=== PATIENT | female | born 1930 | race Caucasian/White ===

== ENCOUNTER → 2016-10-02 | Outpatient (CLI) | payer OTHER ==
[~2016-10-02] MED LIST: ACETAMINOPHEN650 M6 PO; ACITRETIN10 MG PO; ACTONEL150 MG PO; ANXIETY MED PO; ARTIFICIAL TEAR15 M1 BOTH EYES; ASPIR-TRIN325 M1 PO; BENADRYL25 MG PO; CALCIUM + VITA1 EACH PO; CEPHALEXIN500 MG PO; CIPRO500 MG PO; CLEOCIN300 MG PO; DOCUSATE SODIU100 MG PO; DOXYCYCLINE HY100 MG PO; FISH OIL SOFTG1 EACH PO; FLAGYL500 MG PO; HEPARIN SO5000 UNITS SC; KENALOG,ARISTOC80 GM TP; LISINOPRIL10 MG PO; LISINOPRIL5 MG PO; OXYCODONE HCL5 MG PO; POLYETHYLENE GL17 GM PO; PREDNISONE20 MG PO; REFRESH TEARS15 ML BOTH EYES; REMICADE10 MG/ML IV; THERAGRAN1 TABLET PO; TRAMADOL HCL50 MG PO; TYLENOL EXTRA500 MG PO; TYLENOL REGULA325 MG PO; ULTRAVATE 0.05%15 GM TP; VIBRAMYCIN100 MG PO; VITAMIN D31000 UNI1 PO; WELLBUTRIN75 MG PO; ZESTRIL10 MG PO; Zantac PO; [UNRECOGNIZED DRUG - REMARK]
== END | disposition home or self-care (01) ==
LOC: RES 08:34
DX: J90 Pleural effusion, not elsewhere classified (principal); R91.8 Other nonspecific abnormal finding of lung field; R06.02 Shortness of breath
CPT/HCPCS: 71020; 94060; 94726; 94729

== ENCOUNTER 2016-10-21 14:54 | Inpatient (IN) | payer OTHER ==
[~2016-10-21] VITALS: Ht 147.3 cm; Wt 43.2 kg
[2016-10-21 15:51] LABS: EOSINOPHIL (%) 0.4 % (0-5); HEMATOCRIT 45.1 % (36.0-46.0); IMMATURE GRANULOCYTE (%) 0.4 % (0.0-0.7); INSTRUMENT ABS NEUTROPHIL CT 3.1 K/uL; LYMPHOCYTE COUNT 1.9 K/uL (1.0-2.8); MCH 32.7 PG (29.0-34.0); MCHC 32.2 G/DL (30.0-36.0); MCV 101.8 FL (83-99); MEAN PLAT.VOLUME 11.3 uM^3 (9.5-12.4); MONOCYTE (%) 8.3 % (3-12); MONOCYTE COUNT 0.5 K/uL (0-0.8); NEUTROPHIL (%) 55.8 % (45-76); NEUTROPHIL COUNT 3.1 K/uL (1.8-6.4); PLATELET COUNT 153 K/uL (156-360); RBC DIS.WIDTH-CV 15.9 % (11.8-14.6); RBC DIS.WIDTH-SD 59.8 % (39-53); RED BLOOD COUNT 4.43 M/uL (3.80-5.20); WHITE BLOOD COUNT 5.6 K/uL (4.1-10.2)
[2016-10-21 16:02] LABS: CHLORIDE 104 mEq/L (99-109); POTASSIUM 3.9 mEq/L (3.7-5.4); SODIUM 140 mEq/L (136-147)
[2016-10-21 16:04] LABS: GLUCOSE 124 mg/dL (70-99)
[2016-10-21 16:05] LABS: ANION GAP 15 MEQ/L (2-14)
[2016-10-21 16:06] LABS: TOTAL BILIRUBIN 0.8 mg/dL (0.0-1.0)
[2016-10-21 16:07] LABS: ALKALINE PHOSPHATASE 99 IU/L (3-129)
[2016-10-21 16:08] LABS: GFR ESTIMATE (CALCULATED) 56 mL/min/
[2016-10-21 16:09] LABS: UREA NITROGEN (BUN) 28 mg/dL (9-23)
[2016-10-21 16:14] LABS: TROP-I INTERPRETATION NEGATIVE; TROPONIN-I 0.09 ng/mL (0.0-0.30)
[2016-10-21 18:09] LABS: ADD MIUA? YES; BILIRUBIN NEGATIVE; BLOOD NEGATIVE; COLOR AMBER ((YELLOW)); GLUCOSE (STRIP) NEGATIVE; KETONES 5; LEUKOCYTES NEGATIVE; NITRITE NEGATIVE; PROTEIN (STRIP) 100
[2016-10-21 18:19] LABS: BACTERIA RARE /HPF; EPITHELIAL CELLS RARE /HPF; MUCUS TRACE /LPF; UCUL ADDED? YES
[2016-10-21 18:41] LABS: SPECIFIC GRAVITY 1.054 (1.000-1.030)
[2016-10-22 01:10] LABS: TROP-I INTERPRETATION NEGATIVE; TROPONIN-I 0.13 ng/mL (0.0-0.30)
[2016-10-22 03:45] VITALS: BP 141/78
[2016-10-22 04:59] LABS: METH RESISTANT S AUREUS PCR NEGATIVE (NEGATIVE)
[2016-10-22 05:03] LABS: PROBE CHECK PASS; SPECIMEN PROCESSING CONTROL PASS
[2016-10-22 05:05] LABS: TROP-I INTERPRETATION NEGATIVE; TROPONIN-I 0.14 ng/mL (0.0-0.30)
[2016-10-22 07:00] VITALS: BP 125/67
[2016-10-22 11:24] LABS: TYPE OF FLUID PLEURAL
[2016-10-22 11:28] VITALS: BP 128/71
[2016-10-22 11:36] LABS: BODY FLUID RBC'S 1000 /MM^3 (0-100); BODY FLUID WBC'S 220 /MM^3 (0-500)
[2016-10-22 12:13] LABS: BODY FLUID EOSINOPHILS 0 % (0-25); MONONUCLEAR WBC'S 99 %; POLYNUCLEAR WBC'S 1 % (0-25)
[2016-10-22 12:36] LABS: BODY FLUID LDH 64 IU/L; BODY FLUID PROTEIN < 3.0 G/DL
[2016-10-22 15:54] VITALS: BP 111/68
[2016-10-22 19:30] VITALS: BP 103/63
[2016-10-23] VITALS: BP 99/60
[2016-10-23 03:51] VITALS: BP 128/78
[2016-10-23 05:41] LABS: HEMATOCRIT 42.6 % (36.0-46.0); MCH 33.1 PG (29.0-34.0); MCHC 32.6 G/DL (30.0-36.0); MCV 101.4 FL (83-99); MEAN PLAT.VOLUME 11.4 uM^3 (9.5-12.4); PLATELET COUNT 145 K/uL (156-360); RBC DIS.WIDTH-CV 15.9 % (11.8-14.6); RBC DIS.WIDTH-SD 59.1 % (39-53); WHITE BLOOD COUNT 5.1 K/uL (4.1-10.2)
[2016-10-23 06:15] LABS: ANION GAP 11 MEQ/L (2-14); CHLORIDE 103 MEQ/L (99-109); GFR ESTIMATE (CALCULATED) 56 mL/min/; GLUCOSE 101 mg/dL (70-99); POTASSIUM 3.2 MEQ/L (3.7-5.4); SAMPLE HEMOLYSIS CHECK 0; SAMPLE ICTERIC CHECK 0; SAMPLE LIPEMIA CHECK 0; SODIUM 140 MEQ/L (136-147); UREA NITROGEN (BUN) 25 mg/dL (9-23)
[2016-10-23 07:23] VITALS: BP 105/59
[2016-10-23 08:54] LABS: LACTATE DEHYDROGENASE 246 IU/L (20-246)
[2016-10-23 12:13] VITALS: BP 107/57
[2016-10-23 15:18] VITALS: BP 106/67
[2016-10-23 20:06] VITALS: BP 105/62
[2016-10-24 00:23] VITALS: BP 116/60
[2016-10-24 03:47] VITALS: BP 91/54
[2016-10-24 09:45] VITALS: BP 111/60
[2016-10-24 11:33] VITALS: BP 103/61
[2016-10-24] MEDS ORDERED: ENALAPRIL MALEAT5 MG PO (12:57)
[2016-10-24] MEDS ORDERED: CARVEDILOL3.125 MG PO (12:57)
[2016-10-24] MEDS ORDERED: FUROSEMIDE20 MG PO (12:57)
[2016-10-25 22:41] LABS: BODY FLUID PH 7.6 (())
== END 2016-10-24 16:22 | disposition home or self-care (01) | DRG 292 ==
LOC: EME → EDBD 14:54 → EME 14:54 → EDOF 23:48 → 4EAST 23:48 → ENRESERV 23:50 → 4EAST 10-22 03:38 → ENPENDDIS 10-24 → 4EAST 10-24 16:22
PROVIDERS: Emergency Medicine; Hospitalist; Internal Medicine
PROC: 0W9B3ZZ Drainage of Left Pleural Cavity, Percutaneous Approach (ICD-10-PCS; principal; 2016-10-22)
PROC: 0W993ZZ Drainage of Right Pleural Cavity, Percutaneous Approach (ICD-10-PCS; principal; 2016-10-22)
DX: I50.21 Acute systolic (congestive) heart failure (principal); I48.91 Unspecified atrial fibrillation; E78.5 Hyperlipidemia, unspecified; J44.9 Chronic obstructive pulmonary disease, unspecified; E11.9 Type 2 diabetes mellitus without complications; I25.10 Atherosclerotic heart disease of native coronary artery without angina pectoris; N39.0 Urinary tract infection, site not specified; I44.0 Atrioventricular block, first degree; I11.0 Hypertensive heart disease with heart failure; R09.02 Hypoxemia; J98.11 Atelectasis; M81.0 Age-related osteoporosis without current pathological fracture; M17.0 Bilateral primary osteoarthritis of knee; M06.9 Rheumatoid arthritis, unspecified; K21.9 Gastro-esophageal reflux disease without esophagitis; I25.2 Old myocardial infarction; Z95.5 Presence of coronary angioplasty implant and graft; Z87.442 Personal history of urinary calculi; Z87.891 Personal history of nicotine dependence; Z86.73 Personal history of transient ischemic attack (TIA), and cerebral infarction without residual deficits; Z85.3 Personal history of malignant neoplasm of breast; Z91.19 Patient's noncompliance with other medical treatment and regimen; Z91.14 Patient's other noncompliance with medication regimen
CPT/HCPCS: 71010; 71275; 76942; 80048; 80053; 81003; 83615; 83615 91; 83986 90; 84157; 84484; 85025; 85027; 85379; 87070; 87086; 87205; 87641; 88108; 88305; 89051; 93005; 94799; 99281; 99285; J0696; J1644; J1940; J2405; J7030; J7050

== ENCOUNTER 2016-11-01 12:07 | Emergency (ER) | payer OTHER ==
[~2016-11-01] VITALS: Ht 147.3 cm; Wt 42.4 kg
[~2016-11-01 12:07] MED LIST changes: +CARVEDILOL3.125 MG PO; +ENALAPRIL MALEAT5 MG PO; +FUROSEMIDE20 MG PO
[2016-11-01 13:48] LABS: EOSINOPHIL (%) 2.1 % (0-5); EOSINOPHIL COUNT 0.1 K/uL (0-0.3); HEMATOCRIT 43.8 % (36.0-46.0); IMMATURE GRANULOCYTE (%) 0.4 % (0.0-0.7); LYMPHOCYTE COUNT 1.6 K/uL (1.0-2.8); MCH 33.3 PG (29.0-34.0); MCHC 32.9 G/DL (30.0-36.0); MCV 101.4 FL (83-99); MEAN PLAT.VOLUME 11.3 uM^3 (9.5-12.4); MONOCYTE (%) 11.1 % (3-12); MONOCYTE COUNT 0.6 K/uL (0-0.8); NEUTROPHIL (%) 56.5 % (45-76); PLATELET COUNT 147 K/uL (156-360); RBC DIS.WIDTH-CV 15.7 % (11.8-14.6); RBC DIS.WIDTH-SD 59.4 % (39-53); RED BLOOD COUNT 4.32 M/uL (3.80-5.20); WHITE BLOOD COUNT 5.3 K/uL (4.1-10.2)
[2016-11-01 14:00] LABS: CHLORIDE 101 mEq/L (99-109); SODIUM 139 mEq/L (136-147)
[2016-11-01 14:01] LABS: MAGNESIUM 1.9 mg/dL (1.3-2.7)
[2016-11-01 14:02] LABS: GLUCOSE 131 mg/dL (70-99)
[2016-11-01 14:04] LABS: ANION GAP 13 MEQ/L (2-14); TOTAL BILIRUBIN 0.5 mg/dL (0.0-1.0)
[2016-11-01 14:06] LABS: ALKALINE PHOSPHATASE 105 IU/L (3-129); GFR ESTIMATE (CALCULATED) 45 mL/min/
[2016-11-01 14:07] LABS: UREA NITROGEN (BUN) 30 mg/dL (9-23)
[2016-11-01 14:09] LABS: TROP-I INTERPRETATION NEGATIVE; TROPONIN-I 0.04 ng/mL (0.0-0.30)
[2016-11-01 14:23] LABS: ADD MIUA? YES; BILIRUBIN NEGATIVE; BLOOD NEGATIVE; COLOR YELLOW ((YELLOW)); GLUCOSE (STRIP) NEGATIVE; KETONES NEGATIVE; LEUKOCYTES TRACE; NITRITE NEGATIVE; PROTEIN (STRIP) NEGATIVE; UROBILINOGEN 0.2 MG/DL (0.2-1.0)
[2016-11-01 14:28] LABS: BACTERIA NONE SEEN /HPF; EPITHELIAL CELLS RARE /HPF; HYALINE CASTS 0-5 /LPF; MUCUS TRACE /LPF; RED BLOOD CELLS 0-5 /HPF (0-5); UCUL ADDED? NO; WHITE BLOOD CELLS 0-5 /HPF (0-5)
[2016-11-01 17:01] VITALS: BP 104/64
== END 2016-11-01 17:01 | disposition home or self-care (01) ==
LOC: EME 12:07
PROVIDERS: Emergency Medicine
DX: I11.0 Hypertensive heart disease with heart failure (principal); I50.9 Heart failure, unspecified; M54.5 Low back pain; E11.9 Type 2 diabetes mellitus without complications; J44.9 Chronic obstructive pulmonary disease, unspecified; K21.9 Gastro-esophageal reflux disease without esophagitis; I25.2 Old myocardial infarction; L40.9 Psoriasis, unspecified; M81.0 Age-related osteoporosis without current pathological fracture; M06.9 Rheumatoid arthritis, unspecified; Z86.73 Personal history of transient ischemic attack (TIA), and cerebral infarction without residual deficits; Z85.828 Personal history of other malignant neoplasm of skin; Z87.442 Personal history of urinary calculi; Z87.891 Personal history of nicotine dependence; Z88.0 Allergy status to penicillin
CPT/HCPCS: 80053; 81003; 83735; 83880; 84484; 85025; 93005; 99281; 99284; J1940

== ENCOUNTER 2016-11-09 10:30 | Emergency (ER) | payer OTHER ==
[~2016-11-09] VITALS: Ht 147.3 cm; Wt 41.2 kg
[2016-11-09 11:16] LABS: EOSINOPHIL (%) 1.4 % (0-5); EOSINOPHIL COUNT 0.1 K/uL (0-0.3); IMMATURE GRANULOCYTE (%) 0.4 % (0.0-0.7); INSTRUMENT ABS NEUTROPHIL CT 3.2 K/uL; LYMPHOCYTE COUNT 1.4 K/uL (1.0-2.8); MCH 32.5 PG (29.0-34.0); MCHC 32.1 G/DL (30.0-36.0); MCV 101.4 FL (83-99); MEAN PLAT.VOLUME 11.3 uM^3 (9.5-12.4); MONOCYTE (%) 7.5 % (3-12); MONOCYTE COUNT 0.4 K/uL (0-0.8); NEUTROPHIL (%) 63.4 % (45-76); NEUTROPHIL COUNT 3.2 K/uL (1.8-6.4); PLATELET COUNT 143 K/uL (156-360); RBC DIS.WIDTH-CV 15.3 % (11.8-14.6); RED BLOOD COUNT 4.24 M/uL (3.80-5.20); WHITE BLOOD COUNT 5.1 K/uL (4.1-10.2)
[2016-11-09 11:23] LABS: INTER. NORMALIZED RATIO 1.2; PROTHROMBIN TIME 13.1 SEC (10.2-12.9)
[2016-11-09 11:27] LABS: CHLORIDE 98 mEq/L (99-109); POTASSIUM 3.2 mEq/L (3.7-5.4); SODIUM 141 mEq/L (136-147)
[2016-11-09 11:29] LABS: GLUCOSE 147 mg/dL (70-99)
[2016-11-09 11:30] LABS: ANION GAP 14 MEQ/L (2-14)
[2016-11-09 11:33] LABS: GFR ESTIMATE (CALCULATED) 50 mL/min/; UREA NITROGEN (BUN) 24 mg/dL (9-23)
[2016-11-09 11:37] LABS: TROP-I INTERPRETATION NEGATIVE; TROPONIN-I 0.04 ng/mL (0.0-0.30)
[2016-11-09 13:00] VITALS: BP 103/61
[2016-11-10] MEDS ORDERED: TYLOPHEN500 MG PO (17:35)
[2016-11-10] MEDS ORDERED: LASIX20 MG PO (17:36)
== END 2016-11-09 13:06 | disposition home or self-care (01) ==
LOC: EME 10:30
PROVIDERS: Emergency Medicine
DX: I50.9 Heart failure, unspecified (principal); E11.9 Type 2 diabetes mellitus without complications; J44.9 Chronic obstructive pulmonary disease, unspecified; Z87.442 Personal history of urinary calculi; I25.2 Old myocardial infarction; K21.9 Gastro-esophageal reflux disease without esophagitis; Z86.73 Personal history of transient ischemic attack (TIA), and cerebral infarction without residual deficits; I10 Essential (primary) hypertension; L40.9 Psoriasis, unspecified; M81.0 Age-related osteoporosis without current pathological fracture; Z87.891 Personal history of nicotine dependence; Z88.0 Allergy status to penicillin; Z85.828 Personal history of other malignant neoplasm of skin
CPT/HCPCS: 71010; 80048; 83880; 84484; 85025; 85610; 85730; 93005; 99281; 99285; J1940

== ENCOUNTER 2016-11-10 11:31 | Inpatient (IN) | payer OTHER ==
[~2016-11-10] VITALS: Ht 147.3 cm; Wt 44.3 kg
[2016-11-10 13:57] LABS: ADD MIUA? YES; BILIRUBIN NEGATIVE; BLOOD NEGATIVE; COLOR AMBER ((YELLOW)); GLUCOSE (STRIP) NEGATIVE; KETONES NEGATIVE; LEUKOCYTES NEGATIVE; NITRITE NEGATIVE; PROTEIN (STRIP) 30; SPECIFIC GRAVITY 1.016 (1.000-1.030); UROBILINOGEN 0.2 MG/DL (0.2-1.0)
[2016-11-10 14:02] LABS: BACTERIA RARE /HPF; CALCIUM OXALATE CRYSTALS 2+ /HPF; EPITHELIAL CELLS RARE /HPF; HYALINE CASTS 30-40 /LPF; MUCUS 1+ /LPF; RED BLOOD CELLS 0-5 /HPF (0-5); UCUL ADDED? YES
[2016-11-10 14:05] LABS: HEMATOCRIT 46.3 % (36.0-46.0); MCHC 32.6 G/DL (30.0-36.0); MCV 101.1 FL (83-99); MEAN PLAT.VOLUME 11.6 uM^3 (9.5-12.4); PLATELET COUNT 147 K/uL (156-360); RBC DIS.WIDTH-CV 15.3 % (11.8-14.6); RBC DIS.WIDTH-SD 57.4 % (39-53); RED BLOOD COUNT 4.58 M/uL (3.80-5.20); WHITE BLOOD COUNT 4.7 K/uL (4.1-10.2)
[2016-11-10 14:18] LABS: ANION GAP 19 MEQ/L (2-14); CHLORIDE 98 mEq/L (99-109); GLUCOSE 133 mg/dL (70-99); POTASSIUM 5.6 mEq/L (3.7-5.4); SODIUM 140 mEq/L (136-147)
[2016-11-10 14:20] LABS: GFR ESTIMATE (CALCULATED) 41 mL/min/
[2016-11-10 14:23] LABS: UREA NITROGEN (BUN) 29 mg/dL (9-23)
[2016-11-10 14:24] LABS: TROP-I INTERPRETATION NEGATIVE; TROPONIN-I 0.04 ng/mL (0.0-0.30)
[2016-11-10] MEDS ORDERED: TYLOPHEN500 MG PO (17:35)
[2016-11-10] MEDS ORDERED: LASIX20 MG PO (17:36)
[2016-11-10 21:23] VITALS: BP 107/59
[2016-11-10 21:57] LABS: INFLUENZA A VIRAL ANTIGEN NEGATIVE; INFLUENZA B VIRAL ANTIGEN NEGATIVE
[2016-11-10 23:34] VITALS: BP 110/66
[2016-11-11 07:34] VITALS: BP 103/61
[2016-11-11 09:07] LABS: HEMATOCRIT 44.2 % (36.0-46.0); MCH 33.6 PG (29.0-34.0); MCV 101.8 FL (83-99); MEAN PLAT.VOLUME 11.7 uM^3 (9.5-12.4); PLATELET COUNT 158 K/uL (156-360); RBC DIS.WIDTH-CV 15.1 % (11.8-14.6); RBC DIS.WIDTH-SD 56.8 % (39-53); RED BLOOD COUNT 4.34 M/uL (3.80-5.20); WHITE BLOOD COUNT 2.9 K/uL (4.1-10.2)
[2016-11-11 09:55] LABS: ANION GAP 15 MEQ/L (2-14); CHLORIDE 95 MEQ/L (99-109); GFR ESTIMATE (CALCULATED) 35 mL/min/; GLUCOSE 148 mg/dL (70-99); POTASSIUM 5.4 MEQ/L (3.7-5.4); SAMPLE HEMOLYSIS CHECK 2; SAMPLE ICTERIC CHECK 0; SAMPLE LIPEMIA CHECK 0; SODIUM 136 MEQ/L (136-147); UREA NITROGEN (BUN) 37 mg/dL (9-23)
[2016-11-11 15:28] VITALS: BP 104/58
[2016-11-11 23:47] VITALS: BP 107/74
[2016-11-12 07:55] VITALS: BP 110/65
[2016-11-12 08:55] LABS: HEMATOCRIT 42.2 % (36.0-46.0); MCH 33.7 PG (29.0-34.0); MCHC 33.2 G/DL (30.0-36.0); MCV 101.4 FL (83-99); MEAN PLAT.VOLUME 11.6 uM^3 (9.5-12.4); PLATELET COUNT 163 K/uL (156-360); RBC DIS.WIDTH-CV 15.1 % (11.8-14.6); RBC DIS.WIDTH-SD 56.5 % (39-53); RED BLOOD COUNT 4.16 M/uL (3.80-5.20); WHITE BLOOD COUNT 6.4 K/uL (4.1-10.2)
[2016-11-12 09:19] LABS: ANION GAP 11 MEQ/L (2-14); CHLORIDE 97 MEQ/L (99-109); GFR ESTIMATE (CALCULATED) 38 mL/min/; GLUCOSE 88 mg/dL (70-99); POTASSIUM 4.1 MEQ/L (3.7-5.4); SAMPLE HEMOLYSIS CHECK 0; SAMPLE ICTERIC CHECK 0; SAMPLE LIPEMIA CHECK 0; SODIUM 138 MEQ/L (136-147); UREA NITROGEN (BUN) 40 mg/dL (9-23)
[2016-11-12 10:37] LABS: INTERNAL CONTROL VALID? YES
[2016-11-12] MEDS ORDERED: SORE THROAT SP177 M1 MM (13:39)
[2016-11-12] MEDS ORDERED: LASIX20 MG PO (13:39)
[2016-11-12] MEDS ORDERED: LEVAQUIN750 MG PO (13:39)
[2016-11-12 15:36] VITALS: BP 111/66
[2016-11-13 00:06] VITALS: BP 105/68
[2016-11-13 05:51] LABS: HEMATOCRIT 41.4 % (36.0-46.0); MCH 33.4 PG (29.0-34.0); MCHC 32.9 G/DL (30.0-36.0); MCV 101.7 FL (83-99); MEAN PLAT.VOLUME 11.6 uM^3 (9.5-12.4); PLATELET COUNT 161 K/uL (156-360); RBC DIS.WIDTH-CV 15.1 % (11.8-14.6); RBC DIS.WIDTH-SD 56.1 % (39-53); RED BLOOD COUNT 4.07 M/uL (3.80-5.20); WHITE BLOOD COUNT 5.2 K/uL (4.1-10.2)
[2016-11-13 06:16] LABS: ANION GAP 9 MEQ/L (2-14); CHLORIDE 98 MEQ/L (99-109); GFR ESTIMATE (CALCULATED) 41 mL/min/; GLUCOSE 92 mg/dL (70-99); POTASSIUM 3.6 MEQ/L (3.7-5.4); SAMPLE HEMOLYSIS CHECK 0; SAMPLE ICTERIC CHECK 0; SAMPLE LIPEMIA CHECK 0; SODIUM 138 MEQ/L (136-147); UREA NITROGEN (BUN) 33 mg/dL (9-23)
[2016-11-13 08:14] VITALS: BP 112/72
== END 2016-11-13 14:53 | DRG 190 ==
LOC: EME 11:31 → 5SOUTH 15:58 → EDOF 15:58 → ENRESERV 15:59 → 5SOUTH 20:56
PROVIDERS: Hospitalist; Physician Assistant; Physician Assistant Medical
DX: J44.0 Chronic obstructive pulmonary disease with (acute) lower respiratory infection (principal); J18.9 Pneumonia, unspecified organism; I13.0 Hypertensive heart and chronic kidney disease with heart failure and stage 1 through stage 4 chronic kidney disease, or unspecified chronic kidney disease; N18.3 Chronic kidney disease, stage 3 (moderate); I50.9 Heart failure, unspecified; E11.22 Type 2 diabetes mellitus with diabetic chronic kidney disease; I25.10 Atherosclerotic heart disease of native coronary artery without angina pectoris; G30.9 Alzheimer's disease, unspecified; F02.80 Dementia in other diseases classified elsewhere, unspecified severity, without behavioral disturbance, psychotic disturbance, mood disturbance, and anxiety; L40.9 Psoriasis, unspecified; M06.9 Rheumatoid arthritis, unspecified; M17.12 Unilateral primary osteoarthritis, left knee; Y95 Nosocomial condition; I25.2 Old myocardial infarction; Z86.73 Personal history of transient ischemic attack (TIA), and cerebral infarction without residual deficits; Z87.442 Personal history of urinary calculi; Z87.891 Personal history of nicotine dependence; Z91.19 Patient's noncompliance with other medical treatment and regimen; Z82.49 Family history of ischemic heart disease and other diseases of the circulatory system
CPT/HCPCS: 71020; 80048; 80048 91; 81003; 84484; 85027; 87077; 87086; 87186; 87449; 87502; 93005; 94640; 99281; 99285; J1100; J1644; J1956; J3260; J7030; J7050

== ENCOUNTER 2017-01-23 09:49 | Inpatient (IN) | payer OTHER ==
[~2017-01-23] VITALS: Ht 147.3 cm; Wt 53.1 kg
[~2017-01-23 09:49] MED LIST changes: +LASIX20 MG PO; +LEVAQUIN750 MG PO; +METFORMIN HCL500 MG PO; +SORE THROAT SP177 M1 MM; +TYLOPHEN500 MG PO
[2017-01-23 10:49] LABS: EOSINOPHIL (%) 1.2 % (0-5); EOSINOPHIL COUNT 0.1 K/uL (0-0.3); HEMATOCRIT 42.7 % (36.0-46.0); IMMATURE GRANULOCYTE (%) 0.2 % (0.0-0.7); INSTRUMENT ABS NEUTROPHIL CT 2.5 K/uL; LYMPHOCYTE COUNT 1.8 K/uL (1.0-2.8); MCH 33.1 PG (29.0-34.0); MCHC 34.4 G/DL (30.0-36.0); MCV 96.2 FL (83-99); MEAN PLAT.VOLUME 11.6 uM^3 (9.5-12.4); MONOCYTE (%) 9.9 % (3-12); MONOCYTE COUNT 0.5 K/uL (0-0.8); NEUTROPHIL (%) 51.8 % (45-76); NEUTROPHIL COUNT 2.5 K/uL (1.8-6.4); RBC DIS.WIDTH-CV 16.3 % (11.8-14.6); RBC DIS.WIDTH-SD 56.9 % (39-53); RED BLOOD COUNT 4.44 M/uL (3.80-5.20); WHITE BLOOD COUNT 4.9 K/uL (4.1-10.2)
[2017-01-23 10:58] LABS: PLATELET COUNT 169 K/uL (156-360)
[2017-01-23 10:59] LABS: INTER. NORMALIZED RATIO 1.2; PROTHROMBIN TIME 13.2 SEC (10.2-12.9)
[2017-01-23 11:01] LABS: CHLORIDE 106 mEq/L (99-109); POTASSIUM 4.6 mEq/L (3.7-5.4)
[2017-01-23 11:02] LABS: MAGNESIUM 1.4 mg/dL (1.3-2.7); PTT 26.5 SEC (25-37); SODIUM 137 mEq/L (136-147)
[2017-01-23 11:03] LABS: GLUCOSE 98 mg/dL (70-99)
[2017-01-23 11:05] LABS: ANION GAP 13 MEQ/L (2-14)
[2017-01-23 11:07] LABS: GFR ESTIMATE (CALCULATED) 41 mL/min/
[2017-01-23 11:08] LABS: UREA NITROGEN (BUN) 34 mg/dL (9-23)
[2017-01-23 11:11] LABS: TROP-I INTERPRETATION NEGATIVE; TROPONIN-I 0.06 ng/mL (0.0-0.30)
[2017-01-23 14:15] VITALS: BP 120/80
[2017-01-23 17:26] LABS: POINT-OF-CARE METER ID UU13113781; POINT-OF-CARE USER ID ENVKC36
[2017-01-23 19:00] VITALS: BP 110/72
[2017-01-23 19:28] LABS: TROP-I INTERPRETATION NEGATIVE; TROPONIN-I 0.06 ng/mL (0.0-0.30)
[2017-01-23 23:15] VITALS: BP 110/64
[2017-01-24 03:00] VITALS: BP 120/63
[2017-01-24 04:30] LABS: TROP-I INTERPRETATION NEGATIVE; TROPONIN-I 0.05 ng/mL (0.0-0.30)
[2017-01-24 08:09] LABS: POINT-OF-CARE METER ID UU13113781
[2017-01-24 08:30] VITALS: BP 105/58
[2017-01-24 09:04] LABS: POINT-OF-CARE METER ID UU13113781
[2017-01-24 12:08] LABS: POINT-OF-CARE METER ID UU13113819
[2017-01-24 14:50] VITALS: BP 118/76
[2017-01-24 16:21] LABS: POINT-OF-CARE METER ID UU13113698
[2017-01-24 16:23] VITALS: BP 124/72
[2017-01-24 20:00] VITALS: BP 114/76
[2017-01-24 23:00] VITALS: BP 116/77
[2017-01-25] VITALS (16 sets, daily range): BP systolic 62–118; BP diastolic 42–81
[2017-01-25 03:17] LABS: BASE EXCESS -10.8 mEq/L (-3 to +3); BICARBONATE 17.9 mEq/L (22-26); CARBOXY HGB 1.7 % (0-5); METHEMOGLOBIN 0.7 % (0-1.5); PCO2 49 mm Hg (35-45)
[2017-01-25 03:18] LABS: COMMENTS - BLOOD GASES C+A+; DEVICE NC; O2 FLOW 3.5 L/MIN; PO2 43 mm Hg (80-100); SITE RR; pH 7.17 (7.35-7.45)
[2017-01-25 04:40] LABS: BASE EXCESS -11.2 mEq/L (-3 to +3); BICARBONATE 16.8 mEq/L (22-26); CARBOXY HGB 2.1 % (0-5); METHEMOGLOBIN 1.2 % (0-1.5); PO2 51 mm Hg (80-100)
[2017-01-25 04:41] LABS: COMMENTS - BLOOD GASES C; DEVICE VENT; FI02 100 %; MECHANICAL RATE 22 resp/min; MODE AC; PCO2 44 mm Hg (35-45); SITE LR ALINE; TIDAL VOLUME 300 ML; TOTAL RESP RATE 31 resp/min; pH 7.19 (7.35-7.45)
[2017-01-25 04:42] LABS: PEEP 5 CM/H20
[2017-01-25 05:01] LABS: METH RESISTANT S AUREUS PCR POSITIVE (NEGATIVE)
[2017-01-25 05:04] LABS: PROBE CHECK PASS
[2017-01-25 05:10] LABS: MCH 33.1 PG (29.0-34.0); MCHC 34.7 G/DL (30.0-36.0); MCV 95.5 FL (83-99); MEAN PLAT.VOLUME 12.1 uM^3 (9.5-12.4); PLATELET COUNT 152 K/uL (156-360); RBC DIS.WIDTH-CV 16.7 % (11.8-14.6); RBC DIS.WIDTH-SD 57.7 % (39-53); RED BLOOD COUNT 4.71 M/uL (3.80-5.20); WHITE BLOOD COUNT 5.7 K/uL (4.1-10.2)
[2017-01-25 05:23] LABS: CHLORIDE 107 mEq/L (99-109); SODIUM 133 mEq/L (136-147)
[2017-01-25 05:25] LABS: GLUCOSE 129 mg/dL (70-99); MAGNESIUM 1.8 mg/dL (1.3-2.7)
[2017-01-25 05:27] LABS: ANION GAP 12 MEQ/L (2-14)
[2017-01-25 05:28] LABS: INTER. NORMALIZED RATIO 1.3; PROTHROMBIN TIME 15.1 SEC (10.2-12.9)
[2017-01-25 05:28] LABS: TROP-I INTERPRETATION NEGATIVE; TROPONIN-I 0.06 ng/mL (0.0-0.30)
[2017-01-25 05:29] LABS: GFR ESTIMATE (CALCULATED) 41 mL/min/
[2017-01-25 05:30] LABS: UREA NITROGEN (BUN) 31 mg/dL (9-23)
[2017-01-25 05:31] LABS: PTT 31.9 SEC (25-37)
[2017-01-25 06:24] LABS: BASE EXCESS -6.3 mEq/L (-3 to +3); BICARBONATE 19.7 mEq/L (22-26); METHEMOGLOBIN 1.3 % (0-1.5); PCO2 40 mm Hg (35-45)
[2017-01-25 06:25] LABS: COMMENTS - BLOOD GASES C+; DEVICE VENT; FI02 100 %; MECHANICAL RATE 22 resp/min; MODE AC; PEEP 6.5 CM/H20; PO2 62 mm Hg (80-100); SITE A-LINE; TIDAL VOLUME 300 ML; TOTAL RESP RATE 23 resp/min
[2017-01-25 07:18] LABS: Estimated Average Glucose 163 mg/dL (70-123); HEMOGLOBIN A1c (GLYCOHEMOGLOB) 7.3 % HGB (Below 5.7)
[2017-01-25 13:08] LABS: POINT-OF-CARE METER ID UU13113803
[2017-01-25 18:18] LABS: POINT-OF-CARE METER ID UU14208751
[2017-01-25 18:34] LABS: POINT-OF-CARE METER ID UU14208751
[2017-01-26 00:22] LABS: POINT-OF-CARE METER ID UU14314083
[2017-01-26 03:35] LABS: EOSINOPHIL (%) 0.3 % (0-5); HEMATOCRIT 41.6 % (36.0-46.0); IMMATURE GRANULOCYTE (%) 0.3 % (0.0-0.7); INSTRUMENT ABS NEUTROPHIL CT 4.6 K/uL; LYMPHOCYTE COUNT 1.1 K/uL (1.0-2.8); MCH 32.5 PG (29.0-34.0); MCHC 34.6 G/DL (30.0-36.0); MCV 93.9 FL (83-99); MEAN PLAT.VOLUME 11.9 uM^3 (9.5-12.4); MONOCYTE (%) 9.1 % (3-12); MONOCYTE COUNT 0.6 K/uL (0-0.8); NEUTROPHIL (%) 72.2 % (45-76); NEUTROPHIL COUNT 4.6 K/uL (1.8-6.4); PLATELET COUNT 108 K/uL (156-360); RBC DIS.WIDTH-CV 16.5 % (11.8-14.6); RBC DIS.WIDTH-SD 56.5 % (39-53); RED BLOOD COUNT 4.43 M/uL (3.80-5.20); WHITE BLOOD COUNT 6.4 K/uL (4.1-10.2)
[2017-01-26 03:48] LABS: CHLORIDE 110 mEq/L (99-109); SODIUM 138 mEq/L (136-147)
[2017-01-26 03:49] LABS: MAGNESIUM 1.9 mg/dL (1.3-2.7)
[2017-01-26 03:50] LABS: GLUCOSE 150 mg/dL (70-99)
[2017-01-26 03:52] LABS: ANION GAP 9 MEQ/L (2-14)
[2017-01-26 03:54] LABS: GFR ESTIMATE (CALCULATED) 50 mL/min/
[2017-01-26 03:56] LABS: UREA NITROGEN (BUN) 31 mg/dL (9-23)
[2017-01-26 08:00] VITALS: BP 100/47
[2017-01-26 10:00] VITALS: BP 105/53
[2017-01-26 12:41] LABS: POINT-OF-CARE METER ID UU14162636
[2017-01-26 13:00] VITALS: BP 105/53
[2017-01-26 16:00] VITALS: BP 90/60
[2017-01-26 18:09] LABS: POINT-OF-CARE METER ID UU14162636
[2017-01-26 20:00] VITALS: BP 109/71
[2017-01-27] VITALS (7 sets, daily range): BP systolic 94–119; BP diastolic 50–64
[2017-01-27 01:24] LABS: POINT-OF-CARE METER ID UU14174217
[2017-01-27 05:27] LABS: POINT-OF-CARE METER ID UU14174217
[2017-01-27 05:40] LABS: BASE EXCESS -5.9 mEq/L (-3 to +3); BICARBONATE 18.8 mEq/L (22-26); CARBOXY HGB 2.1 % (0-5); COMMENTS - BLOOD GASES A+; DEVICE 840; FI02 40 %; METHEMOGLOBIN 1.5 % (0-1.5); PCO2 34 mm Hg (35-45); PO2 73 mm Hg (80-100); SITE ALINE; pH 7.35 (7.35-7.45)
[2017-01-27 05:41] LABS: MODE SPONT; PEEP 8 CM/H20; PRES. SUPPORT 10 CM/H2O; TOTAL RESP RATE 18 resp/min
[2017-01-27 05:42] LABS: EOSINOPHIL (%) 0.2 % (0-5); HEMATOCRIT 38.7 % (36.0-46.0); IMMATURE GRANULOCYTE (%) 0.2 % (0.0-0.7); INSTRUMENT ABS NEUTROPHIL CT 4.3 K/uL; LYMPHOCYTE COUNT 0.7 K/uL (1.0-2.8); MCH 32.5 PG (29.0-34.0); MCHC 34.9 G/DL (30.0-36.0); MCV 93.3 FL (83-99); MEAN PLAT.VOLUME 12.1 uM^3 (9.5-12.4); MONOCYTE (%) 9.5 % (3-12); MONOCYTE COUNT 0.5 K/uL (0-0.8); NEUTROPHIL (%) 77.8 % (45-76); NEUTROPHIL COUNT 4.3 K/uL (1.8-6.4); PLATELET COUNT 85 K/uL (156-360); RBC DIS.WIDTH-CV 16.7 % (11.8-14.6); RBC DIS.WIDTH-SD 55.6 % (39-53); RED BLOOD COUNT 4.15 M/uL (3.80-5.20); WHITE BLOOD COUNT 5.6 K/uL (4.1-10.2)
[2017-01-27 06:13] LABS: ALKALINE PHOSPHATASE 83 IU/L (3-129); ANION GAP 10 MEQ/L (2-14); CHLORIDE 110 MEQ/L (99-109); GFR ESTIMATE (CALCULATED) 56 mL/min/; GLUCOSE 123 mg/dL (70-99); MAGNESIUM 1.7 mg/dl (1.3-2.7); POTASSIUM 3.3 MEQ/L (3.7-5.4); SAMPLE HEMOLYSIS CHECK 0; SAMPLE ICTERIC CHECK 0; SAMPLE LIPEMIA CHECK 0; SODIUM 139 MEQ/L (136-147); TOTAL BILIRUBIN 0.8 MG/DL (0.0-1.0); UREA NITROGEN (BUN) 28 mg/dL (9-23)
[2017-01-27 11:56] LABS: POINT-OF-CARE METER ID UU14314083
[2017-01-27 18:07] LABS: POINT-OF-CARE METER ID UU14314083
[2017-01-28 00:06] LABS: POINT-OF-CARE METER ID UU14314083
[2017-01-28 05:02] LABS: POINT-OF-CARE METER ID UU14174217; POINT-OF-CARE USER ID 606021424
[2017-01-28 05:24] LABS: EOSINOPHIL (%) 0.2 % (0-5); HEMATOCRIT 38.1 % (36.0-46.0); IMMATURE GRANULOCYTE (%) 0.5 % (0.0-0.7); INSTRUMENT ABS NEUTROPHIL CT 4.4 K/uL; LYMPHOCYTE COUNT 0.8 K/uL (1.0-2.8); MCH 33.1 PG (29.0-34.0); MEAN PLAT.VOLUME 12.5 uM^3 (9.5-12.4); MONOCYTE (%) 8.2 % (3-12); MONOCYTE COUNT 0.5 K/uL (0-0.8); NEUTROPHIL (%) 77.6 % (45-76); NEUTROPHIL COUNT 4.4 K/uL (1.8-6.4); PLATELET COUNT 96 K/uL (156-360); RBC DIS.WIDTH-CV 16.9 % (11.8-14.6); RBC DIS.WIDTH-SD 55.8 % (39-53); RED BLOOD COUNT 4.14 M/uL (3.80-5.20); WHITE BLOOD COUNT 5.7 K/uL (4.1-10.2)
[2017-01-28 05:29] LABS: BASE EXCESS -8.2 mEq/L (-3 to +3); BICARBONATE 15.8 mEq/L (22-26); CARBOXY HGB 1.7 % (0-5); COMMENTS - BLOOD GASES C+; DEVICE VENT; FI02 40 %; METHEMOGLOBIN 1.3 % (0-1.5); MODE SPONT; PCO2 28 mm Hg (35-45); PEEP 5 CM/H20; PO2 92 mm Hg (80-100); PRES. SUPPORT 10 CM/H2O; SITE ALINE; TOTAL RESP RATE 14 resp/min; pH 7.36 (7.35-7.45)
[2017-01-28 06:04] LABS: ANION GAP 10 MEQ/L (2-14); CHLORIDE 113 MEQ/L (99-109); GFR ESTIMATE (CALCULATED) 56 mL/min/; GLUCOSE 110 mg/dL (70-99); SAMPLE HEMOLYSIS CHECK 0; SAMPLE ICTERIC CHECK 0; SAMPLE LIPEMIA CHECK 0; SODIUM 140 MEQ/L (136-147); UREA NITROGEN (BUN) 29 mg/dL (9-23)
[2017-01-28 06:06] LABS: POTASSIUM 4.3 MEQ/L (3.7-5.4)
[2017-01-28 09:45] LABS: BASE EXCESS -8.5 mEq/L (-3 to +3); BICARBONATE 15.3 mEq/L (22-26); COMMENTS - BLOOD GASES C+; DEVICE 840; FI02 45 %; METHEMOGLOBIN 1.3 % (0-1.5); PCO2 27 mm Hg (35-45); PO2 62 mm Hg (80-100); SITE ALINE; pH 7.36 (7.35-7.45)
[2017-01-28 09:46] LABS: CONTINUOUS POS AIRWAY PRESSURE 5 cm H2O; MODE TUBE COMPENSATION; TOTAL RESP RATE 20 resp/min
[2017-01-28 12:00] VITALS: BP 96/56
[2017-01-28 14:57] LABS: Heparin Induced Plt Ab Negative (Negative)
[2017-01-29 06:34] LABS: EOSINOPHIL (%) 0.1 % (0-5); HEMATOCRIT 39.8 % (36.0-46.0); IMMATURE GRANULOCYTE (%) 0.4 % (0.0-0.7); MCH 32.4 PG (29.0-34.0); MCHC 34.9 G/DL (30.0-36.0); MCV 92.8 FL (83-99); MEAN PLAT.VOLUME 11.9 uM^3 (9.5-12.4); MONOCYTE (%) 8.2 % (3-12); MONOCYTE COUNT 0.6 K/uL (0-0.8); NEUTROPHIL (%) 77.8 % (45-76); NRBC (%) 0.3 /100 WBC (0-0); PLATELET COUNT 113 K/uL (156-360); RBC DIS.WIDTH-CV 17.5 % (11.8-14.6); RBC DIS.WIDTH-SD 57.1 % (39-53); RED BLOOD COUNT 4.29 M/uL (3.80-5.20); WHITE BLOOD COUNT 7.8 K/uL (4.1-10.2)
[2017-01-29 07:00] VITALS: BP 101/65
[2017-01-29 07:10] LABS: ANION GAP 12 MEQ/L (2-14); CHLORIDE 115 MEQ/L (99-109); GFR ESTIMATE (CALCULATED) 45 mL/min/; GLUCOSE 103 mg/dL (70-99); SAMPLE HEMOLYSIS CHECK 0; SAMPLE ICTERIC CHECK 0; SAMPLE LIPEMIA CHECK 0; SODIUM 141 MEQ/L (136-147); UREA NITROGEN (BUN) 33 mg/dL (9-23)
[2017-01-29 07:12] LABS: MAGNESIUM 2.4 mg/dl (1.3-2.7)
[2017-01-29 12:00] VITALS: BP 101/65
[2017-01-29 12:14] LABS: BASE EXCESS -12.4 mEq/L (-3 to +3); BICARBONATE 12.7 mEq/L (22-26); CARBOXY HGB 2.1 % (0-5); COMMENTS - BLOOD GASES NAC+; DEVICE PB 840; FI02 50 %; METHEMOGLOBIN 1.5 % (0-1.5); PCO2 27 mm Hg (35-45); PO2 59 mm Hg (80-100); SITE ALINE
[2017-01-29 12:15] LABS: MODE PSV; TOTAL RESP RATE 23 resp/min; pH 7.28 (7.35-7.45)
[2017-01-29 17:37] LABS: UFH SRA Result Negative (Negative)
[2017-01-29 18:25] LABS: CHLORIDE 114 MEQ/L (99-109); GFR ESTIMATE (CALCULATED) 41 mL/min/; GLUCOSE 139 mg/dL (70-99); POTASSIUM 3.8 MEQ/L (3.7-5.4); SAMPLE HEMOLYSIS CHECK 0; SAMPLE ICTERIC CHECK 0; SAMPLE LIPEMIA CHECK 0; SODIUM 140 MEQ/L (136-147); UREA NITROGEN (BUN) 36 mg/dL (9-23)
[2017-01-29 18:34] LABS: ANION GAP 13 MEQ/L (2-14)
[2017-01-29 21:53] LABS: ANION GAP 13 MEQ/L (2-14); CHLORIDE 115 MEQ/L (99-109); GFR ESTIMATE (CALCULATED) 45 mL/min/; GLUCOSE 158 mg/dL (70-99); MAGNESIUM 2.3 mg/dl (1.3-2.7); POTASSIUM 3.9 MEQ/L (3.7-5.4); SAMPLE HEMOLYSIS CHECK 0; SAMPLE ICTERIC CHECK 0; SAMPLE LIPEMIA CHECK 0; SODIUM 141 MEQ/L (136-147); UREA NITROGEN (BUN) 38 mg/dL (9-23)
[2017-01-30 03:00] VITALS: BP 106/65
[2017-01-30 05:09] LABS: EOSINOPHIL (%) 0.1 % (0-5); HEMATOCRIT 39.6 % (36.0-46.0); IMMATURE GRANULOCYTE (%) 0.4 % (0.0-0.7); INSTRUMENT ABS NEUTROPHIL CT 6.1 K/uL; LYMPHOCYTE COUNT 1.1 K/uL (1.0-2.8); MCH 31.9 PG (29.0-34.0); MCHC 34.6 G/DL (30.0-36.0); MCV 92.3 FL (83-99); MONOCYTE (%) 5.4 % (3-12); MONOCYTE COUNT 0.4 K/uL (0-0.8); NEUTROPHIL (%) 79.2 % (45-76); NEUTROPHIL COUNT 6.1 K/uL (1.8-6.4); NRBC (%) 0.4 /100 WBC (0-0); PLATELET COUNT 113 K/uL (156-360); RBC DIS.WIDTH-CV 17.7 % (11.8-14.6); RBC DIS.WIDTH-SD 57.7 % (39-53); RED BLOOD COUNT 4.29 M/uL (3.80-5.20); WHITE BLOOD COUNT 7.7 K/uL (4.1-10.2)
[2017-01-30 06:35] LABS: ANION GAP 10 MEQ/L (2-14); CHLORIDE 114 MEQ/L (99-109); GFR ESTIMATE (CALCULATED) 38 mL/min/; GLUCOSE 195 mg/dL (70-99); MAGNESIUM 2.2 mg/dl (1.3-2.7); POTASSIUM 3.7 MEQ/L (3.7-5.4); SAMPLE HEMOLYSIS CHECK 0; SAMPLE ICTERIC CHECK 0; SAMPLE LIPEMIA CHECK 0; SODIUM 140 MEQ/L (136-147); UREA NITROGEN (BUN) 36 mg/dL (9-23)
[2017-01-30 07:00] VITALS: BP 0/0; BP 106/64
[2017-01-30 19:00] VITALS: BP 119/65
[2017-01-30 20:30] VITALS: BP 112/53
[2017-01-31 04:00] VITALS: BP 112/53
[2017-01-31 08:59] LABS: ANION GAP 6 MEQ/L (2-14); CHLORIDE 112 MEQ/L (99-109); GFR ESTIMATE (CALCULATED) 41 mL/min/; GLUCOSE 177 mg/dL (70-99); MAGNESIUM 1.8 mg/dl (1.3-2.7); POTASSIUM 3.6 MEQ/L (3.7-5.4); SAMPLE HEMOLYSIS CHECK 0; SAMPLE ICTERIC CHECK 0; SAMPLE LIPEMIA CHECK 0; SODIUM 140 MEQ/L (136-147); UREA NITROGEN (BUN) 38 mg/dL (9-23)
[2017-01-31 09:00] LABS: HEMATOCRIT 37.8 % (36.0-46.0); MCH 32.2 PG (29.0-34.0); MCHC 34.7 G/DL (30.0-36.0); MCV 92.9 FL (83-99); RBC DIS.WIDTH-CV 17.5 % (11.8-14.6); RBC DIS.WIDTH-SD 57.2 % (39-53); RED BLOOD COUNT 4.07 M/uL (3.80-5.20); WHITE BLOOD COUNT 8.8 K/uL (4.1-10.2)
[2017-01-31 09:31] LABS: EOSINOPHIL (%) 0.3 % (0-5); IMMATURE GRANULOCYTE (%) 0.7 % (0.0-0.7); IMMATURE GRANULOCYTE COUNT 0.1 K/uL; LYMPHOCYTE COUNT 1.3 K/uL (1.0-2.8); MEAN PLAT.VOLUME 11.8 uM^3 (9.5-12.4); MONOCYTE COUNT 0.4 K/uL (0-0.8); NEUTROPHIL (%) 79.6 % (45-76); PLAT.SUFFICIENCY DECREASED
[2017-01-31 09:35] LABS: PLATELET COUNT 77 K/uL (156-360)
[2017-01-31 19:00] VITALS: BP 119/65
[2017-01-31 21:00] VITALS: BP 106/51
[2017-02-01 04:00] VITALS: BP 106/51
[2017-02-01 10:39] VITALS: BP 133/43
== END 2017-02-01 18:29 | DRG 207 ==
LOC: EME 09:49 → EDOF 12:17 → 4EAST 12:17 → ENRESERV 12:18 → EDOF 12:18 → ENRESERV 12:21 → 4EAST 16:01 → ENRESERV 01-25 03:06 → 4WEST 01-25 03:06
PROVIDERS: Emergency Medicine; Internal Medicine; Specialist; Surgery
DX: J96.01 Acute respiratory failure with hypoxia (principal); I25.5 Ischemic cardiomyopathy; R57.1 Hypovolemic shock; I47.2 Ventricular tachycardia; I46.2 Cardiac arrest due to underlying cardiac condition; J18.9 Pneumonia, unspecified organism; J44.0 Chronic obstructive pulmonary disease with (acute) lower respiratory infection; E87.4 Mixed disorder of acid-base balance; I13.0 Hypertensive heart and chronic kidney disease with heart failure and stage 1 through stage 4 chronic kidney disease, or unspecified chronic kidney disease; I50.23 Acute on chronic systolic (congestive) heart failure; N18.2 Chronic kidney disease, stage 2 (mild); E11.22 Type 2 diabetes mellitus with diabetic chronic kidney disease; E11.649 Type 2 diabetes mellitus with hypoglycemia without coma; I95.1 Orthostatic hypotension; I44.7 Left bundle-branch block, unspecified; J98.11 Atelectasis; E78.5 Hyperlipidemia, unspecified; I25.10 Atherosclerotic heart disease of native coronary artery without angina pectoris; K21.9 Gastro-esophageal reflux disease without esophagitis; M19.90 Unspecified osteoarthritis, unspecified site; S01.01XA Laceration without foreign body of scalp, initial encounter; W18.30XA Fall on same level, unspecified, initial encounter; Y95 Nosocomial condition; Z66 Do not resuscitate; I25.2 Old myocardial infarction; Q24.5 Malformation of coronary vessels; Z86.73 Personal history of transient ischemic attack (TIA), and cerebral infarction without residual deficits; Z87.01 Personal history of pneumonia (recurrent); Z87.442 Personal history of urinary calculi; Z87.891 Personal history of nicotine dependence; Z88.6 Allergy status to analgesic agent; Z88.0 Allergy status to penicillin; Z88.2 Allergy status to sulfonamides
CPT/HCPCS: 31500; 36600; 70450; 71010; 72125; 80048; 80048 91; 80053; 80202; 81003; 82330; 82803; 82948; 83036; 83735; 84100; 84484; 85025; 85027; 85610; 85730; 86022 90; 87070; 87077; 87147; 87186; 87205; 87641; 93005; 93970; 94002; 94003; 94640; 94640 76; 94760; 94799; 99202; 99281; 99284; C1753; C1769; C1887; C1894; G0378; J0692; J1160; J1644; J1652; J1815; J1940; J2250; J3010; J3370; J3475; J7030; J7050; J7070; S0028; S0030